=== PATIENT | male | born 1945 | race Caucasian/White ===

== ENCOUNTER 2018-03-11 11:30 | Inpatient (IN) | payer OTHER ==
[~2018-03-11] VITALS: Ht 167.6 cm; Wt 75.7 kg
[2018-03-11] MEDS ORDERED: ATORVASTATIN CA40 MG (12:09)
[2018-03-15] MEDS ORDERED: CIPRO500 MG PO (09:40)
[2018-03-15] MEDS ORDERED: FLAGYL500MG PO (09:41)
== END 2018-03-15 11:56 | disposition home or self-care (01) | DRG 392 ==
LOC: ER 11:30 → EDBD 11:50 → SEC-K 03-12 09:09 → MEDI 03-12 17:26
DX: K57.32 Diverticulitis of large intestine without perforation or abscess without bleeding (principal); C61 Malignant neoplasm of prostate

== ENCOUNTER 2018-06-14 08:03 | Outpatient (CLI) | payer OTHER ==
[~2018-06-14 08:03] MED LIST: ATORVASTATIN CA40 MG; CIPRO500 MG PO; FLAGYL500MG PO
== END 2018-06-14 08:05 | disposition home or self-care (01) ==
LOC: TOM 08:03
DX: K57.32 Diverticulitis of large intestine without perforation or abscess without bleeding (principal)

== ENCOUNTER 2019-04-01 21:51 | Emergency (ER) | payer OTHER ==
[~2019-04-01] VITALS: Ht 167.6 cm; Wt 74.8 kg
[2019-04-02] MEDS ORDERED: KETO10TA2 PO (02:01)
[2019-04-02] MEDS ORDERED: CIPRO500 MG PO (02:01)
== END 2019-04-02 02:17 | disposition home or self-care (01) ==
LOC: ER 21:51
DX: N21.0 Calculus in bladder (principal); R10.32 Left lower quadrant pain